=== PATIENT | female | born 1930 | race Caucasian/White ===

== ENCOUNTER 2017-04-04 09:12 | Emergency (ER) | payer MEDICARE ==
[~2017-04-04] VITALS: Ht 175.3 cm; Wt 74.0 kg
[~2017-04-04 09:12] MED LIST: BENAZEPRIL20 M1 PO; METOPROL TAR25 MG PO; UNISOM SLEEP25 MG PO; WARFARIN3 MG PO; [UNRECOGNIZED DRUG - OTHER] OU
[2017-04-04] MEDS ORDERED: UNISOM PO (09:30)
[2017-04-04 09:57] LABS: HEMATOCRIT 46.2 % (37.0-47.0); HEMOGLOBIN 14.9 g/dl (12.0-16.0); IMMATURE GRANULOCYTES 0.3 % (0.0-1.0); MEAN CELL VOLUME 91.5 fL CALC (80.0-100.0); MEAN CORPUSCULAR HGB 29.5 pG CALC (26.0-32.0); MEAN CORPUSCULAR HGB CONC 32.3 g/L CALC (32.0-36.0); NEUT# 5.93 thou/uL (2.00-7.15); RED BLOOD COUNT 5.05 mill/uL (4.20-5.60); RED CELL DISTRI WIDTH 14.3 % (11.5-15.5)
[2017-04-04 10:09] LABS: ALBUMIN 4.4 g/dL (3.2-5.0); BILIRUBIN, TOTAL 0.9 mg/dL (0.0-1.4); CALCIUM 9.6 mg/dL (8.4-10.2); CREATININE 1.1 mg/dL (0.5-1.0); POTASSIUM 3.8 mmol/l (3.5-5.1); TOTAL PROTEIN 8.3 g/dL (6.3-8.2)
[2017-04-04 11:01] LABS: URINE BILIRUBIN - DIPSTICK NEGATIVE (NEGATIVE); URINE BLOOD DIPSTICK NEGATIVE (NEGATIVE); URINE CLARITY CLEAR; URINE COLOR YELLOW; URINE GLUCOSE - DIPSTICK NEGATIVE (NEGATIVE); URINE KETONE NEGATIVE (NEGATIVE); URINE LEUK ESTERASE NEGATIVE (NEGATIVE); URINE NITRITE - DIPSTICK NEGATIVE (Negative); URINE PROTEIN - DIPSTICK NEGATIVE (NEG-TRACE)
[2017-04-04] MEDS ORDERED: LOPRESSOR25 M1 PO (12:16)
[2017-04-04 12:27] VITALS: BP 151/63
== END 2017-04-04 12:40 ==
LOC: ED 09:12 → ED-I 12:07 → ED 12:40
PROVIDERS: Emergency Medicine
DX: R53.1 Weakness (principal); R42 Dizziness and giddiness; R53.81 Other malaise; R00.0 Tachycardia, unspecified; I10 Essential (primary) hypertension; I48.91 Unspecified atrial fibrillation

== ENCOUNTER 2017-04-05 10:39 | Observation (INO) | payer MEDICARE ==
[~2017-04-05] VITALS: Ht 175.3 cm; Wt 73.0 kg
[~2017-04-05 10:39] MED LIST changes: +LOPRESSOR25 M1 PO; +UNISOM PO
[2017-04-05 13:44] VITALS: BP 166/73
[2017-04-05 16:03] VITALS: BP 118/54
[2017-04-05 19:40] VITALS: BP 117/74
[2017-04-05 23:40] VITALS: BP 147/76
[2017-04-06 04:10] VITALS: BP 115/68
[2017-04-06 06:26] LABS: HEMATOCRIT 37.2 % (37.0-47.0); HEMOGLOBIN 11.9 g/dl (12.0-16.0); IMMATURE GRANULOCYTES 0.3 % (0.0-1.0); MEAN CORPUSCULAR HGB 29.8 pG CALC (26.0-32.0); RED CELL DISTRI WIDTH 14.1 % (11.5-15.5)
[2017-04-06 06:52] LABS: ANION GAP 14 (6-22 (CALC)); BUN 17 mg/dL (8-23); BUN/CREATININE RATIO 18 (12-20 (CALC)); CALCIUM 8.6 mg/dL (8.4-10.2); CARBON DIOXIDE 25 mmol/l (22-30); CHLORIDE 112 mmol/l (95-108); GFR 52 ML/MIN (>=60 (CALC)); GFR FOR AFR.AMER. > 60 ML/MIN (>=60 (CALC)); GLUCOSE 78 mg/dL (82-115); POTASSIUM 4.7 mmol/l (3.5-5.1); SODIUM 146 mmol/l (137-146)
[2017-04-06 09:09] VITALS: BP 150/49
[2017-04-06] MEDS ORDERED: TRAMADOL HCL50 MG PO (10:04)
[2017-04-06] MEDS ORDERED: ASPIRIN ADULT L81 M2 PO (10:04)
[2017-04-06 10:12] VITALS: BP 150/49
== END 2017-04-06 10:47 ==
LOC: ED 10:39 → ED-I 12:11 → ED 12:30 → MS2 12:31
PROVIDERS: ADMIT Internal Medicine; ATTEND Internal Medicine
DX: S22.42XA Multiple fractures of ribs, left side, initial encounter for closed fracture (principal); M25.552 Pain in left hip; S41.102A Unspecified open wound of left upper arm, initial encounter; I10 Essential (primary) hypertension; I48.91 Unspecified atrial fibrillation; W07.XXXA Fall from chair, initial encounter; Y92.099 Unspecified place in other non-institutional residence as the place of occurrence of the external cause; Z91.81 History of falling

== ENCOUNTER 2017-05-12 09:31 | Observation (INO) | payer MEDICARE ==
[~2017-05-12] VITALS: Ht 172.7 cm; Wt 72.0 kg
[~2017-05-12 09:31] MED LIST changes: +ASPIRIN ADULT L81 M2 PO; +TRAMADOL HCL50 MG PO
[2017-05-12 10:33] LABS: HEMATOCRIT 42.4 % (37.0-47.0); HEMOGLOBIN 13.6 g/dl (12.0-16.0); IMMATURE GRANULOCYTES 0.3 % (0.0-1.0); MEAN CELL VOLUME 92.6 fL CALC (80.0-100.0); MEAN CORPUSCULAR HGB 29.7 pG CALC (26.0-32.0); MEAN CORPUSCULAR HGB CONC 32.1 g/L CALC (32.0-36.0); NEUT# 4.84 thou/uL (2.00-7.15); RED BLOOD COUNT 4.58 mill/uL (4.20-5.60); RED CELL DISTRI WIDTH 14.2 % (11.5-15.5)
[2017-05-12 10:45] LABS: ALBUMIN 3.9 g/dL (3.2-5.0); ALKALINE PHOSPHATASE 109 u/l (38-126); ANION GAP 18 (6-22 (CALC)); BILIRUBIN, TOTAL 0.7 mg/dL (0.0-1.4); BUN 14 mg/dL (8-23); BUN/CREATININE RATIO 10 (12-20 (CALC)); CALCIUM 9.6 mg/dL (8.4-10.2); CARBON DIOXIDE 23 mmol/l (22-30); CHLORIDE 105 mmol/l (95-108); CREATININE 1.4 mg/dL (0.5-1.0); GFR 35 ML/MIN (>=60 (CALC)); GFR FOR AFR.AMER. 43 ML/MIN (>=60 (CALC)); GLUCOSE 200 mg/dL (82-115); POTASSIUM 4.9 mmol/l (3.5-5.1); SGOT/AST 25 u/l (9-36); SGPT/ALT 24 u/l (11-66); SODIUM 142 mmol/l (137-146)
[2017-05-12 10:57] LABS: MYOGLOBIN 42 ng/mL (0 - 62)
[2017-05-12 13:10] LABS: URINE BILIRUBIN - DIPSTICK NEGATIVE (NEGATIVE); URINE BLOOD DIPSTICK TRACE-INTACT (NEGATIVE); URINE COLOR YELLOW; URINE GLUCOSE - DIPSTICK NEGATIVE (NEGATIVE); URINE KETONE NEGATIVE (NEGATIVE); URINE NITRITE - DIPSTICK NEGATIVE (Negative); URINE PH 5.5 (4.5-8.0); URINE PROTEIN - DIPSTICK NEGATIVE (NEG-TRACE); URINE SPECIFIC GRAVITY <=1.005; URINE UROBILINOGEN - DIPSTICK 0.2 E.U./dL (0.2)
[2017-05-12 13:13] LABS: URINE CLARITY CLOUDY; URINE LEUK ESTERASE LARGE (NEGATIVE)
[2017-05-12 13:31] LABS: URINE BACTERIA FEW hpf; URINE SQUAMOUS EPITHELIAL CELL FEW EPI/hpf (0-FEW); URINE WBC TNTC WBC/hpf (0-5)
[2017-05-12 16:10] VITALS: BP 150/75
[2017-05-12 19:35] VITALS: BP 126/71
[2017-05-13 00:32] VITALS: BP 118/74
[2017-05-13 04:30] VITALS: BP 121/58
[2017-05-13 06:07] LABS: HEMATOCRIT 40.7 % (37.0-47.0); HEMOGLOBIN 13.1 g/dl (12.0-16.0); MEAN CELL VOLUME 92.7 fL CALC (80.0-100.0); MEAN CORPUSCULAR HGB 29.8 pG CALC (26.0-32.0); MEAN CORPUSCULAR HGB CONC 32.2 g/L CALC (32.0-36.0); RED BLOOD COUNT 4.39 mill/uL (4.20-5.60); RED CELL DISTRI WIDTH 14.1 % (11.5-15.5)
[2017-05-13 06:17] LABS: CALCIUM 9.4 mg/dL (8.4-10.2); CREATININE 1.5 mg/dL (0.5-1.0)
[2017-05-13 06:31] LABS: POTASSIUM 5.2 mmol/l (3.5-5.1)
[2017-05-13] MEDS ORDERED: AMIODARONE200 MG PO (12:47)
[2017-05-13 13:55] VITALS: BP 122/77
== END 2017-05-13 14:50 ==
LOC: ED 09:31 → ED-I 14:17 → ED 14:33 → MS2 14:34
PROVIDERS: Emergency Medicine; ADMIT Internal Medicine; ATTEND Internal Medicine
DX: I48.2 Chronic atrial fibrillation (principal); N18.9 Chronic kidney disease, unspecified; I12.9 Hypertensive chronic kidney disease with stage 1 through stage 4 chronic kidney disease, or unspecified chronic kidney disease; I95.1 Orthostatic hypotension; F03.90 Unspecified dementia, unspecified severity, without behavioral disturbance, psychotic disturbance, mood disturbance, and anxiety; N17.9 Acute kidney failure, unspecified; I48.92 Unspecified atrial flutter; Z91.81 History of falling; Z79.899 Other long term (current) drug therapy; R00.0 Tachycardia, unspecified; R42 Dizziness and giddiness; R06.02 Shortness of breath

== ENCOUNTER 2017-08-20 08:22 | Observation (INO) | payer MEDICARE ==
[~2017-08-20] VITALS: Ht 172.7 cm; Wt 82.0 kg
[~2017-08-20 08:22] MED LIST changes: +AMIODARONE200 MG PO
--- NOTE | 2017-08-20 08:22 | NUR ---
pt to room 13 via ems.
--- NOTE | 2017-08-20 08:44 | NUR ---
PT RESTING ON STRETCHER WITH EYES CLOSED.
[2017-08-20 08:57] LABS: HEMATOCRIT 45.7 % (37.0-47.0); HEMOGLOBIN 14.9 g/dl (12.0-16.0); IMMATURE GRANULOCYTES 0.2 % (0.0-1.0); MEAN CELL VOLUME 89.4 fL CALC (80.0-100.0); MEAN CORPUSCULAR HGB 29.2 pG CALC (26.0-32.0); MEAN CORPUSCULAR HGB CONC 32.6 g/L CALC (32.0-36.0); NEUT# 5.48 thou/uL (2.00-7.15); RED BLOOD COUNT 5.11 mill/uL (4.20-5.60); RED CELL DISTRI WIDTH 14.8 % (11.5-15.5)
[2017-08-20 09:05] LABS: INFLUENZA A NONE DETECTED (NONE DETECT); INFLUENZA B NONE DETECTED (NONE DETECT)
--- NOTE | 2017-08-20 09:16 | NUR ---
PT SITTING UP , STATES FEELS BETTER, URINE WITH BEDPAN
[2017-08-20 09:22] LABS: PROTHROMBIN TIME 11.4 SECONDS (9.0-12.5)
[2017-08-20 09:22] LABS: URINE BILIRUBIN - DIPSTICK NEGATIVE (NEGATIVE); URINE BLOOD DIPSTICK NEGATIVE (NEGATIVE); URINE COLOR YELLOW; URINE GLUCOSE - DIPSTICK NEGATIVE (NEGATIVE); URINE KETONE NEGATIVE (NEGATIVE); URINE LEUK ESTERASE NEGATIVE (NEGATIVE); URINE NITRITE - DIPSTICK NEGATIVE (Negative); URINE PROTEIN - DIPSTICK NEGATIVE (NEG-TRACE); URINE UROBILINOGEN - DIPSTICK 0.2 E.U./dL (0.2)
[2017-08-20 09:23] LABS: ANION GAP 22 (6-22 (CALC)); BUN 15 mg/dL (8-23); BUN/CREATININE RATIO 9 (12-20 (CALC)); CARBON DIOXIDE 19 mmol/l (22-30); CHLORIDE 108 mmol/l (95-108); CREATININE 1.7 mg/dL (0.5-1.0); GFR 28 ML/MIN (>=60 (CALC)); GFR FOR AFR.AMER. 34 ML/MIN (>=60 (CALC)); POTASSIUM 4.4 mmol/l (3.5-5.1); SODIUM 145 mmol/l (137-146)
[2017-08-20 09:33] LABS: URINE CLARITY CLEAR
[2017-08-20 09:54] LABS: TSH, 3RD GENERATION 4.24 uIU/mL (0.47 - 4.68)
--- NOTE | 2017-08-20 09:58 | NUR ---
AFTER PULLING AND SCANNING AND BEFORE BEGINNING THE UNASYN DR. MO HAS DECIDED HE WOULD RATHER GIVE CEFEPIME, SO AT THIS TIME HOLDING VINAYN.
--- NOTE | 2017-08-20 10:03 | NUR ---
ADVISED PT OF POSSIBLITY OF ADMISSION
--- NOTE | 2017-08-20 10:58 | NUR ---
PT REPORT GIVEN TO MED SURG FOR CONTINUATION OF CARE
--- NOTE | 2017-08-20 10:59 | NUR ---
PT ARRIVED TO FLOOR VIA STRECTACHER ACCOMPANIED BY ED STAFF. PT AMBULATES WITH STANDBY ASSIST. GENERALIZED WEAKNESS NOTED. FALL PRECAUTIONS. CALL LIGHT REVIEWED AND IN REACH. PT ORIENTED TO ROOM AND EQUIPMENT. PLAN OF CARE DISCUSSED. PT STATES UNDERSTANDING OF INFORMATION.
--- NOTE | 2017-08-20 11:14 | NUR ---
PT TAKEN TO FLOOR PER STRETCHER, VITAL SIGNS STABLE.
[2017-08-20 11:21] VITALS: BP 146/77
[2017-08-20 16:27] VITALS: BP 122/57
--- NOTE | 2017-08-20 18:20 | NUR ---
PT SAT ON SIDE OF BED FOR DINNER. DENIES DIZZINESS AT THIS TIME. STATES "I FEEL BETTER. STILL JUST A LITTLE WEAK, I GUESS." FALL PRECAUTIONS REINFORCED AGAIN. CALL LIGHT WITHIN REACH.
[2017-08-20 19:12] VITALS: BP 107/51
--- NOTE | 2017-08-20 19:25 | NUR ---
REPORT RECIEVED; PT RESTING IN BED. PT DENIES PAIN OR DISCOMFORT. SAFETY PRECAUTIONS REINFORCED. CALL LIGHT WITHIN REACH.
--- NOTE | 2017-08-20 20:30 | NUR ---
PT ALERT AND ORIENTED. PT HARD OF HEARING. RESP EVEN AND UNLABORED. NO DISTRESS NOTED. TELE IN PLACE. ABD SOFT; ACTIVE BOWEL SOUNDS. PEDAL PULSES PALPATED BILAT. IV LFA PATENT; FLUSHED WITHOUT DIFFICULTY. PT DENIES ANY PAIN OR DISCOMFORT. SAFTEY PRECAUTIONS REINFORCED. CALL LIGHT WITHIN REACH.
[2017-08-21 00:14] VITALS: BP 116/38
--- NOTE | 2017-08-21 00:35 | NUR ---
PT WOKE FOR VITALS. PT DENIES PAIN OR DISCOMFORT. RESP EVEN AND UNLABORED. NO DISTRESS NOTED. CALL LIGHT WITHIN REACH. TELE IN PLACE.
[2017-08-21 04:03] VITALS: BP 128/45
--- NOTE | 2017-08-21 04:05 | NUR ---
RESP EVEN AND UNLABORED. ASSESSMENT UNCHANGED. TELE IN PLACE. CALL LIGHT WITHIN REACH.
[2017-08-21 05:02] LABS: HEMATOCRIT 37.1 % (37.0-47.0); HEMOGLOBIN 11.6 g/dl (12.0-16.0); IMMATURE GRANULOCYTES 0.2 % (0.0-1.0); MEAN CELL VOLUME 92.5 fL CALC (80.0-100.0); MEAN CORPUSCULAR HGB 28.9 pG CALC (26.0-32.0); MEAN CORPUSCULAR HGB CONC 31.3 g/L CALC (32.0-36.0); NEUT# 2.74 thou/uL (2.00-7.15); RED BLOOD COUNT 4.01 mill/uL (4.20-5.60); RED CELL DISTRI WIDTH 15.4 % (11.5-15.5)
[2017-08-21 05:36] LABS: ALBUMIN 3.2 g/dL (3.2-5.0); BILIRUBIN, TOTAL 0.3 mg/dL (0.0-1.4); CREATININE 1.4 mg/dL (0.5-1.0); POTASSIUM 4.3 mmol/l (3.5-5.1); TOTAL PROTEIN 5.9 g/dL (6.3-8.2)
--- NOTE | 2017-08-21 07:43 | NUR ---
REPORT RECEIVED FROM ROXANNA ALEXIS. PT SUPINE IN BED. DENIES COMPLAINTS. REPORTING OF CONCERNS ENCOURAGED. PLAN OF CARE DISCUSSED. PT REPORTS NO INCIDENTS DURING BAND TUMBLER. CALL LIGHT REVIEWED AND IN REACH. PT STATES UNDERSTANDING.
[2017-08-21 08:21] VITALS: BP 133/54
--- NOTE | 2017-08-21 08:27 | NUR ---
PT REPORTS ANTICIPATIONM OF DISCHARGE TODAY. DISCHARGE PROCESS REVIEWED WITH PT. PT STATES UNDERSTANDING.
--- NOTE | 2017-08-21 11:27 | NUR ---
DR. CARABALLO IN TO SEE PT.
[2017-08-21 12:14] VITALS: BP 130/62
--- NOTE | 2017-08-21 13:03 | NUR ---
RENATO BENOIT NOTIFIED OF DISCHARGE. AWAITING RIDE TO ARRIVE.
--- NOTE | 2017-08-21 13:27 | NUR ---
Discharge instructions given. Patient verbalizes understanding of same. Discharged in stable condition via Wheelchair to Home with staff. All belongings sent with pt.
== END 2017-08-21 13:15 ==
LOC: ED 08:22 → ED-I 09:41 → ED 09:57 → MS2 09:58
PROVIDERS: Family Medicine; ADMIT Internal Medicine; ATTEND Internal Medicine
DX: I48.91 Unspecified atrial fibrillation (principal); I10 Essential (primary) hypertension; E87.2 Acidosis; R06.02 Shortness of breath
CPT/HCPCS: J0692